=== PATIENT | female | born 1985 | race Caucasian/White ===

== ENCOUNTER 2018-12-22 16:01 | Emergency (ER) | payer BC ==
--- NOTE | 2018-12-22 16:45 | RAD ---
RADIOGRAPH CHEST 2 VIEWS: HISTORY: 33-year-old female with foreign body sensation after eating tacos last night, globus pharyngis. FINDINGS: There is no air space density, pulmonary edema, pleural effusion, pneumothorax, or cardiomegaly. No r adiopaque foreign body is visualized. IMPRESSION: 1. No acute cardiopulmonary findings. 2. No radiopaque foreign body is visualized, but ingested food would not be visible on plain radiogr aph. tim [] POS: [facility]
== END 2018-12-22 18:01 | disposition home or self-care (01) ==
LOC: ERS 16:01
DX: T17.920A Food in respiratory tract, part unspecified causing asphyxiation, initial encounter (principal)
CPT/HCPCS: 71046